=== PATIENT | male | born 1990 | race African-American/Black ===

== ENCOUNTER 2016-11-06 02:03 | Emergency (ER) | payer SELFPAY ==
[2016-11-06] MEDS ORDERED: NORMAL SALINE 1000 ML 1,000 ML IV ONE ×3 (02:15→02:56)
[2016-11-06 02:23] LABS: ABSOLUTE BASOPHILS # (AUTO) 0.1 10^3/uL (0.0-0.2); ABSOLUTE LYMPHOCYTES (AUTO) 1.4 10^3/uL (0.5-4.7); ABSOLUTE MONOCYTES (AUTO) 0.4 10^3/uL (0.1-1.4); ABSOLUTE NEUT (AUTO) 3.8 10^3/uL (1.7-8.2); BASOPHILS % (AUTO) 1.1 % (0-2); EOSINOPHILS % (AUTO) 0.5 % (0-6); HEMATOCRIT 43.8 % (37.9-51.0); HEMOGLOBIN 14.3 g/dL (13.5-17.0); HGB HCT DIFFERENCE -0.9; LYMPHOCYTES % (AUTO) 24.8 % (13-45); MEAN CORPUSCULAR HEMOGLOBIN 27.9 pg (27.0-33.4); MEAN CORPUSCULAR HGB CONC 32.6 g/dL (32.0-36.0); MEAN CORPUSCULAR VOLUME 86 fl (80-97); MONOCYTES % (AUTO) 7.6 % (3-13); RED BLOOD COUNT 5.12 10^6/uL (4.35-5.55); RED CELL DISTRIBUTION WIDTH 13.6 % (11.5-14.0); WHITE BLOOD COUNT 5.8 10^3/uL (4.0-10.5)
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
[2016-11-06] MEDS ORDERED: ONDANSETRON HCL INJ/PF 4 MG/2 ML SDV IV ONE (02:37)
[2016-11-06 02:39] LABS: ALANINE AMINOTRANSFERASE 15 U/L (21-72); ALBUMIN 4.5 g/dL (3.5-5.0); ALCOHOL 214 mg/dL (NONE DETECTED); ALKALINE PHOSPHATASE 75 U/L (38-126); ANION GAP 15 (5-19); ASPARTATE AMINO TRANSFERASE 14 U/L (17-59); BILIRUBIN,DIRECT 0.3 mg/dL (0.0-0.4); BILIRUBIN,TOTAL 0.4 mg/dL (0.2-1.3); BLOOD UREA NITROGEN 7 mg/dL (7-20); CALCIUM 9.2 mg/dL (8.4-10.2); CARBON DIOXIDE 22 mmol/L (22-30); CHLORIDE 107 mmol/L (98-107); CREATININE RESULT 0.82 mg/dL (0.52-1.25); GLUCOSE 98 mg/dL (75-110); MAGNESIUM 1.9 mg/dL (1.6-2.3); POTASSIUM 3.6 mmol/L (3.6-5.0); SODIUM 143.7 mmol/L (137-145); TOTAL PROTEIN 7.7 g/dL (6.3-8.2)
[2016-11-06 06:38] LABS: APPEARANCE,URINE CLEAR; BILIRUBIN,URINE NEGATIVE (NEGATIVE); GLUCOSE, URINE NEGATIVE (NEGATIVE); KETONES,URINE NEGATIVE (NEGATIVE); LEUKOCYTE ESTERASE,URINE NEGATIVE (NEGATIVE); NITRITE,URINE NEGATIVE (NEGATIVE); PROTEIN,URINE NEGATIVE (NEGATIVE); URINE SPECIFIC GRAVITY 1.005; UROBILINOGEN,URINE NEGATIVE mg/dL (<2.0)
[2016-11-06 06:51] LABS: URINE BARBITURATES SCREEN NEGATIVE; URINE METHADONE SCREEN NEGATIVE; URINE OPIATES LOW NEGATIVE; URINE PHENCYCLIDINE SCREEN NEGATIVE
[2016-11-06 10:48] VITALS: BP 107/77
== END 2016-11-06 10:49 | disposition home or self-care (01) ==
LOC: ER 02:03
DX: F10.129 Alcohol abuse with intoxication, unspecified (principal); R11.2 Nausea with vomiting, unspecified
CPT/HCPCS: 99284; 96361; 96374; 36415; 80307 ×2; 83735; 85025; 80053; 81001; J2405; J7030

== ENCOUNTER 2017-10-04 23:06 | Emergency (ER) | payer SELFPAY ==
[2017-10-04] MEDS ORDERED: HYDROCODONE/ACETAMINOPHEN 5-325 MG TABLET PO ONE (23:26)
[2017-10-04] MEDS ORDERED: DIPH/PERTUSS(ACELL)/TETANUS VAC/PF 0.5 ML SYR (>=10YO) IM ONE (23:26)
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
--- NOTE | 2017-10-05 00:16 | RADIOLOGY REPORT (SQ) ---
EXAM DESCRIPTION: Maxillofacial CT without contrast. CLINICAL HISTORY: Trauma/injury. COMPARISON: None available TECHNIQUE: Axial CT of the facial bone obtained without contrast. Coronal and sagittal reformatted images available. DLP: 539.53 mGy-cm FINDINGS: Orbits: Orbital floors and conway are intact. Intraorbital contents: The globes are intact. Extraocular muscles are symmetric. No intraconal fat stranding. Nasal bones: Nondisplaced right nasal bone fracture. Maxilla: The maxillary hard palate is intact. Maxillary antral conway are intact. Sinuses: Paranasal sinuses are well aerated. Zygomatic processes: Intact Pterygoid plates: Intact Mandible: Intact. No mandibular condylar dislocation. Skull base/cervical spine: Visualized portions of the skull base and cervical spine are intact. Visualized mastoid air cells are well aerated. Subcutaneous soft tissues: Edema within the subcutaneous soft tissues of the face. Neck soft tissues: No definite abnormality involving the nasopharynx, oropharynx, or hypopharynx. Fossa of Rosenmuller are clear. Parotid glands and submandibular glands are unremarkable. No cervical lymphadenopathy. IMPRESSION: 1. Nondisplaced right nasal bone fracture. No other fractures identified. This exam was performed according to our departmental dose-optimization program, which includes automated exposure control, adjustment of the mA and/or kV according to patient size and/or use of iterative reconstruction technique.
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
--- NOTE | 2017-10-05 00:42 | RADIOLOGY REPORT (SQ) ---
EXAM DESCRIPTION: single view chest and unilateral view of the left ribs CLINICAL HISTORY: trauma COMPARISON: None. FINDINGS: Single view of the chest and unilateral view of the left ribs. Cardiomediastinal silhouette has normal size and contour. No consolidation, pneumothorax, or pleural effusion. No left rib fracture identified. Upper abdominal soft tissues unremarkable. IMPRESSION: No left rib fracture identified.
[2017-10-05] MEDS ORDERED: LIDOCAINE 2% INJ (20 MG/ML) 20 ML MDV INJ ONE (00:59)
[2017-10-05] MEDS ORDERED: BUPIVACAINE HCL 0.5 % INJ/PF 30 ML SDV INJ ONE (00:59)
[2017-10-05] MEDS ORDERED: HYDROCODONE/ACETAMINOPHEN 5-325 MG (6 TAB/ER DISP) PO PRN (01:30)
[2017-10-05 02:00] VITALS: BP 127/82
== END 2017-10-05 02:00 | disposition home or self-care (01) ==
LOC: EDBD 23:06 → ER 23:06
PROC: 3E0234Z Introduction of Serum, Toxoid and Vaccine into Muscle, Percutaneous Approach (ICD-10-PCS; principal; 2017-10-05)
DX: S89.92XA Unspecified injury of left lower leg, initial encounter (principal); S62.312A Displaced fracture of base of third metacarpal bone, right hand, initial encounter for closed fracture; S62.314A Displaced fracture of base of fourth metacarpal bone, right hand, initial encounter for closed fracture; S62.316A Displaced fracture of base of fifth metacarpal bone, right hand, initial encounter for closed fracture; Y09 Assault by unspecified means; R22.0 Localized swelling, mass and lump, head; R07.81 Pleurodynia; R51 Headache; Z87.81 Personal history of (healed) traumatic fracture; Z23 Encounter for immunization
CPT/HCPCS: 99284; 90471; 73130; 73562; 71101; 73110; 70450; 70486; 90715; L1830; J3490 ×2

== ENCOUNTER 2017-10-12 08:47 | Emergency (ER) | payer SELFPAY ==
[2017-10-12] MEDS ORDERED: AMOXICILLIN TR/POT CLAVULANATE 500-125 MG TAB PO ONE (10:00)
[2017-10-12] MEDS ORDERED: IBUPROFEN 800 MG TABLET PO ONE (10:01)
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
[2017-10-12 10:48] VITALS: BP 102/80
== END 2017-10-12 11:00 | disposition home or self-care (01) ==
LOC: ER 08:47
DX: S62.91XD Unspecified fracture of right hand, subsequent encounter for fracture with routine healing (principal); S83.92XD Sprain of unspecified site of left knee, subsequent encounter; S60.511D Abrasion of right hand, subsequent encounter; Y09 Assault by unspecified means; F17.200 Nicotine dependence, unspecified, uncomplicated
CPT/HCPCS: 99283

== ENCOUNTER 2017-12-27 01:20 | Emergency (ER) | payer SELFPAY ==
[2017-12-27] MEDS ORDERED: HYDROCODONE/ACETAMINOPHEN 5-325 MG (6 TAB/ER DISP) PO PRN (02:48)
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
--- NOTE | 2017-12-27 03:08 | ER Document Report ---
ED General - General Chief Complaint: Hand Injury Stated Complaint: HAND INJURY Time Seen by Provider: 12/27/17 02:36 Notes: Patient is a 24-year-old male presents with complaint of right hand pain. Patient has a previous fracture in the right hand which she was splinted for. He never follow-up with orthopedics and vegetable splint off. Today his hand was closed in a door and his pain over the same area. He says he has difficulty sometimes closing and opening his hand. He again never followed up with orthopedics. Denies any medicine to the fingertips. TRAVEL OUTSIDE OF THE [place] IN LAST 30 DAYS: No - Related Data Allergies/Adverse Reactions: No Known Allergies Allergy (Unverified 11/06/16 07:38) Past Medical History - Social History Smoking Status: Current Every Day Smoker Chew tobacco use (# tins/day): No Frequency of alcohol use: Occasional Drug Abuse: None Family History: None Patient has suicidal ideation: No Patient has homicidal ideation: No Renal/ Medical History: Denies: Hx Peritoneal Dialysis - Immunizations Hx Diphtheria, Pertussis, Tetanus Vaccination: Yes Review of Systems - Review of Systems Notes: My Normal Review Basic REVIEW OF SYSTEMS: CONSTITUTIONAL : Denies fever, chills, or sweats. Denies recent illness. MUSCULOSKELETAL: Pain. SKIN: Denies rash or skin lesions. NEUROLOGICAL: Denies sensory or motor loss. ALL OTHER SYSTEMS REVIEWED AND NEGATIVE. Physical Exam - Vital signs Vitals: Temp Pulse Resp BP Pulse Ox 98.4 F 75 18 134/86 H 97 12/27/17 01:24 12/27/17 01:24 12/27/17 01:24 12/27/17 01:24 12/27/17 01:24 - Notes Notes: General Appearance: Well nourished, alert, cooperative, no acute distress, no obvious discomfort. Vitals: reviewed, See vital signs table. Extremities: strength 5/5 in all extremities, good pulses in all extremities, patient has an obvious knot over the dorsum of his right hand. No surrounding redness or signs of infection. This is consistent with the finding on an x-ray for his previous fracture was. She says is not able to fully flex and extend the fourth fifth digits of his right hand however when I asked him to make a fist he is able to curl his fingers and. He does have some pain in doing so but he is able to do it. He is able to fully extend the fingers without any difficulty. Skin: warm, dry, appropriate color, no rash Neuro: speech clear, oriented x 3, normal affect, responds appropriately to questions. Distal sensation intact. Course - Re-evaluation Re-evalutation: 12/27/17 06:34 Placed a splint on patient's hand. X-ray continued healing fracture. It is difficult to tell if there is a new fracture associated with was seen on x-ray based on his like calcification in the area. I explained to him and told him the importance of following up with orthopedics as he may eventually need a surgery on his hand if he continues to have any dysfunction with his hand as he does still complain that she has some dysfunction associate with his hand. Informed him he needs to loosen the Salvatore wrap on the splints for feels is getting too tight. I encourage him return to ER if he has intractable pain, numbness or weakness into his hand, or if he has any further concerns. Patient agrees with plan will be discharged home. Dictation of this chart was performed using voice recognition software; therefore, there may be some unintended grammatical errors. - Vital Signs Vital signs: Temp Pulse Resp BP Pulse Ox 98.4 F 75 18 134/86 H 97 12/27/17 01:24 12/27/17 01:24 12/27/17 01:24 12/27/17 01:24 12/27/17 01:24 Procedures - Immobilization Right Hand Pre-Proc Neuro Vasc Exam: Normal Immobilizer type: Volar splint Performed by: PCT Post-Proc Neuro Vasc Exam: Normal Discharge - Discharge Clinical Impression: Hand fracture, right Qualifiers: Encounter type: initial encounter Fracture type: closed Qualified Code(s): S62.91XA - Unspecified fracture of right wrist and hand, initial encounter for closed fracture Condition: Good Disposition: HOME, SELF-CARE Additional Instructions: PLease wear the splint. Please contact the orthopedic surgeon, Dr. Ross, for follow up within a week. Please return to the ER if you are having worsening pain., problems with the splint, or if you have any further concerns. You can loosen the salvatore wrap on the splint if you feel it is too tight. Please be aware that [facility] does have Tylenol (acetaminophen) in it. Please make sure you do not take more than 4000 mg of acetaminophen a day. Do not drive or care for children after you have taken this medication they will make you sleepy and sometimes impair judgment. Referrals: UYEN STONER MD [ACTIVE STAFF] - Follow up in 3-5 days
[2017-12-27 03:29] VITALS: BP 134/86
== END 2017-12-27 03:38 | disposition home or self-care (01) ==
LOC: ER 01:20
DX: S62.312D Displaced fracture of base of third metacarpal bone, right hand, subsequent encounter for fracture with routine healing (principal); S62.314D Displaced fracture of base of fourth metacarpal bone, right hand, subsequent encounter for fracture with routine healing; X58.XXXD Exposure to other specified factors, subsequent encounter; F17.200 Nicotine dependence, unspecified, uncomplicated
CPT/HCPCS: 99283

== ENCOUNTER 2019-10-25 00:25 | Emergency (ER) | payer SELFPAY ==
--- NOTE | 2019-10-25 01:37 | RADIOLOGY REPORT (SQ) ---
EXAM DESCRIPTION: XR HAND 3 OR MORE VIEWS COMPLETED DATE/TME: 10/25/2019 00:00 CLINICAL HISTORY: 26 years, Male, bone pain COMPARISON: None. NUMBER OF VIEWS: Three TECHNIQUE: Three views of the right hand LIMITATIONS: None. FINDINGS: There is a mildly displaced and comminuted fracture involving the head and neck of the fifth metacarpal with mild dorsal apex angulation. No other fracture is identified. There is soft tissue swelling around fracture site. No radiopaque foreign body. IMPRESSION: Mildly displaced and comminuted fracture involving the head and neck of the fifth metacarpal. copyright 2010 [employer]- All Rights Reserved
[2019-10-25] MEDS ORDERED: ACETAMINOPHEN 325 MG TABLET PO ONE (03:22)
[2019-10-25] MEDS ORDERED: ONDANSETRON 4 MG TAB.RAPDIS PO ONE (04:51)
[2019-10-25] MEDS ORDERED: OXYCODONE HCL IR 5 MG TABLET PO ONE (04:51)
--- NOTE | 2019-10-25 04:55 | ER Document Report ---
ED Hand/Wrist Injury - General Chief Complaint: Hand Injury Stated Complaint: POSSIBLE HAND INJURY Time Seen by Provider: 10/25/19 04:18 Primary Care Provider: [facility] [Provider Group] - Follow up as needed Notes: 26-year-old male presenting today with right hand pain after hitting a fridge 3 days ago. States he began to feel a pulsation in his hand which brought him in today. [place] any other trauma. States he has good sensation in his hands. Only notes numbness or tingling when he holds his hand down for an extended period of time. Denies any additional medical history. Smokes Black and milds. Denies recreational drug use. Occasional drinker. TRAVEL OUTSIDE OF THE [place] IN LAST 30 DAYS: No - Related Data Allergies/Adverse Reactions: No Known Allergies Allergy (Unverified 11/06/16 07:38) Past Medical History - Social History Smoking Status: Current Every Day Smoker Frequency of alcohol use: Occasional Drug Abuse: Marijuana Family History: None Patient has homicidal ideation: No - Past Medical History Cardiac Medical History: Reports: None Pulmonary Medical History: Reports: None EENT Medical History: Reports: None Neurological Medical History: Reports: None Endocrine Medical History: Reports: None Renal/ Medical History: Reports: None. Denies: Hx Peritoneal Dialysis - Immunizations Hx Diphtheria, Pertussis, Tetanus Vaccination: Yes Review of Systems - Review of Systems Constitutional: No symptoms reported EENT: No symptoms reported Cardiovascular: No symptoms reported Respiratory: No symptoms reported Gastrointestinal: No symptoms reported Musculoskeletal: See HPI Skin: No symptoms reported Physical Exam - Vital signs Vitals: Temp Pulse Resp BP Pulse Ox 98.6 F 86 14 142/79 H 100 10/25/19 00:44 10/25/19 00:44 10/25/19 00:44 10/25/19 00:44 10/25/19 00:44 Interpretation: No: Tachycardic, Hypoxic - Notes Notes: Adult General: GENERAL: Alert, interacts well. No acute distress HEAD: Normocephalic, atraumatic EYES: Pupils equal, round and reactive to light. ENT: Airway patent. Nares patent, sinuses nontender. NECK: Full range of motion. Supple. Trachea midline. LUNGS: Clear to auscultation bilaterally, no wheezes, rales, or rhonchi. No respiratory distress. Nontender chest wall. HEART: Regular rate and rhythm. No murmurs, rubs or gallops. ABDOMEN: Soft, nontender. Nondistended. GENITOURINARY: Deferred EXTREMITIES: Right hand is tender along the fifth metacarpal. Has decreased range of motion with his pinky. Sensation is intact. No open wounds or lesions. BACK: Moves all extremities with full range of motion. NEUROLOGICAL: Alert and oriented x3. Normal speech. Strength 5/ 5 in all extremities. PSYCH: Normal affect, normal mood. SKIN: Warm, dry, normal turgor. No rashes or lesions noted. Course - Re-evaluation Re-evalutation: 10/25/19 07:01 Patient's x-ray shows mildly displaced comminuted fracture involving the head and neck of the fifth metatarsal. Patient was placed in an ulnar gutter splint and pressure was applied along the volar aspect of the fifth meta carpal to reduce fracture. Neurovascularly intact after placement of ulnar gutter. Vital signs are stable. Do not feel that postreduction imaging is necessary based on the fact that this fracture was mildly displaced. Patient was provided pain medication. Discussed the importance of following up with orthopedics as soon as possible. Was given information about the [facility]. Return precautions to the emergency room include worsening symptoms or development of new symptoms. Patient acknowledged and verbalizes understanding of plan. 10/25/19 07:04 10/25/19 07:06 - Vital Signs Vital signs: Temp Pulse Resp BP Pulse Ox 98.6 F 86 14 142/79 H 100 10/25/19 00:58 10/25/19 00:44 10/25/19 00:44 10/25/19 00:44 10/25/19 00:44 Discharge - Discharge Clinical Impression: Fracture of hand Qualifiers: Encounter type: initial encounter Fracture type: closed Laterality: right Qualified Code(s): S62.91XA - Unspecified fracture of right wrist and hand, initial encounter for closed fracture Condition: Stable Disposition: HOME, SELF-CARE Instructions: Fractured Fifth Metacarpal ([facility]) Additional Instructions: Please follow-up with Ortho as soon as possible. Please take pain medications as prescribed. If you have worsening symptoms or development of new symptoms please return to the emergency department for further evaluation and treatment. Prescriptions: Oxycodone HCl/Acetaminophen [Percocet 5-325 mg Tablet] 1 - 2 tab PO Q6H PRN #15 tablet PRN Reason: Referrals: [facility] [Provider Group] - Follow up as needed
[2019-10-25 07:00] VITALS: BP 143/73
== END 2019-10-25 07:14 | disposition home or self-care (01) ==
LOC: ER 00:25
DX: S62.336A Displaced fracture of neck of fifth metacarpal bone, right hand, initial encounter for closed fracture (principal); F17.200 Nicotine dependence, unspecified, uncomplicated; W22.09XA Striking against other stationary object, initial encounter
CPT/HCPCS: 99283